=== PATIENT | female | born 2000 | race Caucasian/White ===

== ENCOUNTER 2021-08-30 16:39 | Outpatient (CLI) | payer OTHER ==
[2021-08-30 17:58] LABS: HEMOGLOBIN 10.5 gm/dl (12.3-15.3); RED BLOOD COUNT 3.76 M/UL (4.00-5.10); WHITE BLOOD COUNT 9.5 K/UL (4.5-11.0)
[2021-08-30 18:20] LABS: BUN/CREATININE RATIO 11 (0-10)
== END 2021-08-30 20:38 | disposition home or self-care (01) ==
LOC: GENOP 16:39
PROVIDERS: Obstetrics & Gynecology
DX: O16.3 Unspecified maternal hypertension, third trimester (principal); O99.891 Other specified diseases and conditions complicating pregnancy; O36.8130 Decreased fetal movements, third trimester, not applicable or unspecified; O99.613 Diseases of the digestive system complicating pregnancy, third trimester; S61.219A Laceration without foreign body of unspecified finger without damage to nail, initial encounter; K21.9 Gastro-esophageal reflux disease without esophagitis; Z3A.35 35 weeks gestation of pregnancy
CPT/HCPCS: 80053; 81001; 82570; 83615; 84156; 84550; 85025; G0463

== ENCOUNTER 2021-09-03 11:24 | Outpatient (CLI) | payer OTHER ==
[2021-09-03 13:20] LABS: HEMOGLOBIN 10.5 gm/dl (12.3-15.3); RED BLOOD COUNT 3.8 M/UL (4.00-5.10); WHITE BLOOD COUNT 9.3 K/UL (4.5-11.0)
[2021-09-03 13:41] LABS: BUN/CREATININE RATIO 9 (0-10)
== END 2021-09-03 15:25 | disposition home or self-care (01) ==
LOC: GENOP 11:24
PROVIDERS: Obstetrics & Gynecology
DX: O10.913 Unspecified pre-existing hypertension complicating pregnancy, third trimester (principal); O99.613 Diseases of the digestive system complicating pregnancy, third trimester; O99.891 Other specified diseases and conditions complicating pregnancy; M54.50 Low back pain, unspecified; K21.9 Gastro-esophageal reflux disease without esophagitis; Z3A.36 36 weeks gestation of pregnancy
CPT/HCPCS: 36415; 80053; 81001; 82570; 83615; 84156; 84550; 85025; G0463

== ENCOUNTER 2021-09-04 11:45 | Inpatient (IN) | payer OTHER ==
[~2021-09-04] VITALS: Ht 167.6 cm; Wt 106.6 kg
[2021-09-04 12:25] LABS: HEMOGLOBIN 10.6 gm/dl (12.3-15.3); RED BLOOD COUNT 3.84 M/UL (4.00-5.10); WHITE BLOOD COUNT 9.7 K/UL (4.5-11.0)
[2021-09-04 12:47] LABS: BUN/CREATININE RATIO 10 (0-10)
[2021-09-05 12:51] LABS: URINE TOTAL PROTEIN 14 mg/dl
[2021-09-05] MEDS ORDERED: LABETALOL HCL200 MG PO (20:34)
[2021-09-05] MEDS ORDERED: ASPIRIN CHEWABL81 MG PO (20:34)
[2021-09-05] MEDS ORDERED: PEPCID20 MG PO (20:35)
[2021-09-07] MEDS ORDERED: DOCUSATE SODIU250 MG PO (00:46)
[2021-09-07] MEDS ORDERED: HYDROCODONE-AC1 EACH PO (00:46)
[2021-09-07] MEDS ORDERED: IBUPROFEN600 MG PO (00:46)
[2021-09-08 03:26] LABS: HEMOGLOBIN 9.1 gm/dl (12.3-15.3)
== END 2021-09-09 18:24 | disposition home or self-care (01) | DRG 788 ==
LOC: GENOP 11:45 → OB 11:45 → GENOP 09-05 14:04 → OB 09-05 14:04
PROVIDERS: Obstetrics & Gynecology; ADMIT Obstetrics & Gynecology
PROC: 4A1HXCZ Monitoring of Products of Conception, Cardiac Rate, External Approach (ICD-10-PCS; 2021-09-04)
PROC: 3E0234Z Introduction of Serum, Toxoid and Vaccine into Muscle, Percutaneous Approach (ICD-10-PCS; 2021-09-05)
PROC: 10D00Z1 Extraction of Products of Conception, Low, Open Approach (ICD-10-PCS; principal; 2021-09-07)
DX: O13.4 Gestational [pregnancy-induced] hypertension without significant proteinuria, complicating childbirth (principal); Z20.822 Contact with and (suspected) exposure to COVID-19; O69.81X0 Labor and delivery complicated by cord around neck, without compression, not applicable or unspecified; Z3A.36 36 weeks gestation of pregnancy; O14.14 Severe pre-eclampsia complicating childbirth; Z37.0 Single live birth; O76 Abnormality in fetal heart rate and rhythm complicating labor and delivery; Z82.49 Family history of ischemic heart disease and other diseases of the circulatory system; Z80.3 Family history of malignant neoplasm of breast; Z83.49 Family history of other endocrine, nutritional and metabolic diseases; O62.1 Secondary uterine inertia; Z23 Encounter for immunization
CPT/HCPCS: 36415; 59025; 80053; 82570; 82800; 83735; 84156; 85014; 85018; 85025; 85461; 86850; 86900; 86901; 90471; 90707; 90715; C9113; J0690; J1170; J2405; J2590; J2765; J2790; J3010; J3475; J7120